=== PATIENT | male | born 1965 | race African-American/Black ===

== ENCOUNTER 2020-08-04 02:58 | Observation (INO) | payer BC, OTHER ==
[2020-08-04 04:12] LABS: BASO % 0.8 % (0-2.0); EOS % 2.7 % (0-4.5); HEMATOCRIT 39.7 % (35.4-49); HEMOGLOBIN 13.6 GM/dL (11.7-16.9); LYMPH % 42.7 % (8-40); MCH 32.6 pg (25.7-33.7); MCHC 34.3 g/dl (32.0-35.9); MEAN PLT VOLUME 7.2 fl (7.5-11.1); MONO % 6.4 % (3.8-10.2); NEUT % 47.4 % (42.8-82.8); PLATELET COUNT 321 K/MM3 (134-434); RBC 4.18 M/mm3 (4.00-5.60)
[2020-08-04 04:27] LABS: ALBUMIN 3.8 g/dl (3.4-5.0); BLOOD UREA NITROGEN 14.5 mg/dL (7-18); MAGNESIUM 1.6 mg/dL (1.8-2.4)
[2020-08-04 04:29] LABS: PHOSPHOROUS 2.2 mg/dL (2.5-4.9)
[2020-08-04 04:31] LABS: BILIRUBIN,TOTAL 0.4 mg/dL (0.2-1)
[2020-08-04] MEDS ORDERED: NAPH,MB-DB/K PH,MBDB POWDER PACKET PO ONE (04:48)
[2020-08-04 04:55] LABS: CREATININE 1.2 mg/dL (0.55-1.3); TOT PROT 7.5 g/dl (6.4-8.2)
[2020-08-04] MEDS ORDERED: NAPH,MB-DB/K PH,MBDB POWDER PACKET ONE (05:02)
[2020-08-04] MEDS ORDERED: MAGNESIUM 1GM/D5W - 1 GM/100 ML IVPB IVPB ONE (05:02)
[2020-08-04] MEDS ORDERED: ASPIRIN 81 MG CHEWABLE TABLETS PO ONE (05:26)
[2020-08-04] MEDS ORDERED: ASPIRIN 81 MG CHEWABLE TABLETS ONE (05:30)
[2020-08-04] MEDS ORDERED: LOSARTAN POTASSIUM 50 MG TABLET ONE (09:00)
[2020-08-04] MEDS: LOSARTAN POTASSIUM 50 MG TABLET PO SCH (09:04)
[2020-08-04] MEDS: HYDROCHLOROTHIAZIDE 12.5 MG CAPSULE (FP) PO SCH (09:37)
[2020-08-04] MEDS ORDERED: PATIENT'S OWN MEDICATION (NON-FORMULARY) (Telmisartan/Hydrochlorothiazid [Telmisartan-Hctz PO SCH (10:00)
[2020-08-04] MEDS: ENOXAPARIN NA (PORCINE) 40 MG/0.4 ML DISP.SYRIN SQ SCH (11:41)
[2020-08-04] MEDS ORDERED: ENOXAPARIN NA (PORCINE) 40 MG/0.4 ML DISP.SYRIN SQ ONE (11:41)
[2020-08-04 12:27] LABS: PH,URINE 7.5 (5.0-8.0); URINE APPEARANCE CLEAR; URINE BILIRUBIN NEGATIVE (NEGATIVE); URINE COLOR YELLOW; URINE GLUCOSE (UA) NEGATIVE (NEGATIVE); URINE KETONE NEGATIVE (NEGATIVE); URINE LEUK ESTERASE NEGATIVE (NEGATIVE); URINE NITRITE NEGATIVE (NEGATIVE); URINE PROTEIN NEGATIVE (NEGATIVE); URINE UROBILINOGEN 0.2 mg/dL (0.2-1.0)
[2020-08-04 12:38] LABS: METHADONE, UR NEGATIVE ng/ml (CUTOFF=300); OPIATES, URI NEGATIVE ng/ml (CUTOFF=300); PHENCYCLIDINE,URINE NEGATIVE ng/ml (CUTOFF=25); URINE AMPHETAMINES NEGATIVE ng/ml (CUTOFF=500); URINE BARBITURATES NEGATIVE ng/ml (CUTOFF=200); URINE BENZODIAZEPINES NEGATIVE ng/ml (CUTOFF=200)
[2020-08-04 12:41] LABS: COCAINE, UR NEGATIVE ng/ml (CUTOFF=300)
[2020-08-04] MEDS ORDERED: ACETAMINOPHEN 325 MG TABLET (FP) PO ONE (18:47)
[2020-08-04 18:53] VITALS: BMI 34.3
[2020-08-04] MEDS ORDERED: ATORVASTATIN CA 20 MG TABLET (FP) PO SCH (22:00)
[2020-08-05 05:45] VITALS: TEMP 98
[2020-08-05 07:31] LABS: BASO % 0.7 % (0-2.0); EOS % 2.3 % (0-4.5); HEMATOCRIT 41.4 % (35.4-49); HEMOGLOBIN 14.1 GM/dL (11.7-16.9); LYMPH % 33.2 % (8-40); MCH 32.7 pg (25.7-33.7); MCHC 34.1 g/dl (32.0-35.9); MEAN CELL VOLUME 95.9 fl (80-96); MEAN PLT VOLUME 7.3 fl (7.5-11.1); MONO % 8.8 % (3.8-10.2); PLATELET COUNT 309 K/MM3 (134-434); RBC 4.31 M/mm3 (4.00-5.60); RDW 13.1 % (11.9-15.9); WHITE BLOOD COUNT 7.6 K/mm3 (4.0-10.0)
[2020-08-05 07:50] LABS: CALCIUM 9.1 mg/dL (8.5-10.1)
[2020-08-05 07:51] LABS: ALBUMIN 3.8 g/dl (3.4-5.0); MAGNESIUM 2.1 mg/dL (1.8-2.4)
[2020-08-05 07:54] LABS: CREATININE 1.2 mg/dL (0.55-1.3)
[2020-08-05 07:56] LABS: TOT PROT 7.5 g/dl (6.4-8.2)
[2020-08-05 07:58] LABS: PHOSPHOROUS 3.8 mg/dL (2.5-4.9)
[2020-08-05 07:59] LABS: BILIRUBIN,TOTAL 0.6 mg/dL (0.2-1)
[2020-08-05 08:58] VITALS: BP 141/88; PULSE 79
[2020-08-05] MEDS: LOSARTAN POTASSIUM 50 MG TABLET PO SCH (09:08)
[2020-08-05] MEDS: HYDROCHLOROTHIAZIDE 12.5 MG CAPSULE (FP) PO SCH (09:08)
[2020-08-05] MEDS: ENOXAPARIN NA (PORCINE) 40 MG/0.4 ML DISP.SYRIN SQ SCH (09:08)
== END 2020-08-05 12:52 | disposition home or self-care (01) ==
LOC: JER 02:58 → UNDOADMOB 03:50 → INTOOBSV 03:50 → JERBED 03:50 → J4W 18:28
PROVIDERS: ATTEND Internal Medicine
PROC: 3E023GC Introduction of Other Therapeutic Substance into Muscle, Percutaneous Approach (ICD-10-PCS; principal; 2020-08-04)
PROC: 3E033GC Introduction of Other Therapeutic Substance into Peripheral Vein, Percutaneous Approach (ICD-10-PCS; 2020-08-04)
DX: R00.2 Palpitations (principal); I10 Essential (primary) hypertension; E87.8 Other disorders of electrolyte and fluid balance, not elsewhere classified; R07.9 Chest pain, unspecified; R42 Dizziness and giddiness; F41.9 Anxiety disorder, unspecified; E66.9 Obesity, unspecified; Z68.34 Body mass index [BMI] 34.0-34.9, adult; K21.9 Gastro-esophageal reflux disease without esophagitis; Z86.16 Personal history of COVID-19; Z29.9 Encounter for prophylactic measures, unspecified; J45.909 Unspecified asthma, uncomplicated; E78.5 Hyperlipidemia, unspecified
CPT/HCPCS: 36415; 71046-TC-FY; 80053; 80061; 80307; 81003; 82550; 82962; 83036; 83721; 83735; 84100; 84443; 84484; 85025; 85379; 85730; 93005; 93010; 93306-TC; 93351; 99285-25; C9803; G0378; U0003; U0005